=== PATIENT | male | born 1950 | race Caucasian/White ===

== ENCOUNTER 2023-01-30 23:27 | Emergency (ER) | payer MEDICAID, OTHER ==
[~2023-01-30] VITALS: Ht 172.7 cm; Wt 85.2 kg
[2023-01-31 04:43] VITALS: BP 129/89
== END 2023-01-31 04:44 | disposition home or self-care (01) ==
LOC: ER 23:27
DX: J20.9 Acute bronchitis, unspecified (principal); E78.00 Pure hypercholesterolemia, unspecified; Z90.49 Acquired absence of other specified parts of digestive tract; Z98.890 Other specified postprocedural states
CPT/HCPCS: 71045; 93005; 99283